=== PATIENT | female | born 1935 | race Caucasian/White ===

== ENCOUNTER 2017-01-29 20:40 | Emergency (ER) | payer MEDICARE ==
[~2017-01-29] VITALS: Ht 167.6 cm; Wt 108.2 kg
[~2017-01-29 20:40] MED LIST: ASPI-973 PO; CHOL10008 PO; GLUC1CAP13 PO; IBUP200C11 PO; LEVO150T5 PO; LISI1TAB7 PO; MULT1CAP33 PO; OMEP40CA36 PO; POTA10CA42 PO
[2017-01-29 20:56] VITALS: BP 158/73; PULSE 71; RESP 18; O2SAT 99
--- NOTE | 2017-01-29 21:44 | ED.REPORT ---
HPI-Extremity Problem Upper Date of Service Jan 29, 2017 ED Provider: Martinez Salgado MD An 81 year old female with a history of hypertension and arthritis presents to the ED complaining of left arm and shoulder pain. The pt tripped over a step while watering plants this evening, landing on her left shoulder. She experienced immediate, severe left shoulder pain. She denies hitting her head, loss of consciousness, headache or neck pain. The pt is not on blood thinners. Nursing Notes Stated Complaint: GLF LEFT ARM PAIN Chief Complaint: Extremity Trauma Nursing Notes Reviewed: Yes Allergies: Coded Allergies: Sulfa (Sulfonamide Antibiotics) (Verified Allergy, Intermediate, SORE MOUTH, 05/24/16) Scheduled Aspirin (Aspirin) 81 Mg Tablet 81 MG PO DAILY Ibuprofen (Advil) 200 Mg Capsule 200 MG PO DAILY Levothyroxine (Levothyroxine) 150 Mcg Tablet 150 MCG PO DAILY Lisinopril / HCTZ 10-12.5 mg (Lisinopril / HCTZ 10-12.5 mg) 1 Each Tablet 1 EACH PO DAILY Multivitamin (Multivitamins) 1 Each Capsule 1 EACH PO DAILY Omeprazole (Omeprazole) 40 Mg Capsule.dr 40 MG PO BID Potassium Chloride (Potassium Chloride) 10 Meq Capsule.er 10 MEQ PO DAILY TAKE WITH FOOD Scheduled PRN Oxycodone HCl/Acetaminophen 5-325 (Endocet 5-325) 1 Each Tablet 1-2 TABLET PO Q4H PRN PRN For Pain Miscellaneous Medications Cholecalciferol (Vitamin D3) (Vitamin D3) 1,000 Unit Tab.chew 1,000 UNIT PO Gluc HCl/Csa/Oleksandr Hy/Hyalur AC (Glucosamine Chondroitin Cap) 1 Each Capsule 2 EACH PO General Time Seen by MD: 21:43 Chief Complaint Shoulder injury left Hx Obtained From: Patient Arrived By: Walk-in Onset Occurred: 1 - 4 hours ago Symptom Duration: Since onset Recent Healthcare: No recent hospitalization, Recent doctor visit Similar Sx Previous: No Past Medical History Past Medical History hypertension hiatal hernia arthritis cancer Past Surgical History bilateral TKA Reports: Cholecystectomy Reports: Tubal ligation Smoking History Never Smoker Social History Other Social History: Good social support, Ambulatory Status Independent Review of Systems Constitutional: Denies: Fever Musculoskeletal: Reports: Joint pain (left shoulder), Denies: Neck pain Neurologic: Denies: Change LOC, Headache Complete sys rev & neg: except as marked. Respiratory: Denies: Non-productive cough, Shortness of breath Cardiovascular: Denies: Chest pain GI: Denies: Abdominal pain, Vomiting Physical Exam Initial Vital Signs Vital Signs (First) Date Time Temp Pulse Resp B/P Pulse Ox O2 Delivery O2 Flow Rate FiO2 01/29/17 20:56 36.3 71 18 158/73 99 Room Air Initial VS: Reviewed General/Constitutional: Awake, Alert Neck: Atraumatic, Supple, Full range of motion Respiratory / Chest: Atraumatic, Breath sounds NL, Breath sounds = bilat, No respiratory distress Cardiovascular: Heart rate NL, Regular rhythm, Heart sounds NL Upper Extremity / MS: No deformity, Neurologic intact sore over the left proximal humerus pulses intact motor function of the medial, radial and ulnar nerve intact Skin: Color NL, No rash, Warm, Dry Neurologic: Oriented X3, Speech NL, No motor deficits, No sensory deficits Head / Eyes: Atraumatic, Normocephalic, PERRL, EOMI ENT: Atraumatic, Airway patent, Mucous membranes moist Abdomen: Atraumatic, Soft, Non-tender Back: Atraumatic, Full range of motion Lower Extremity / Pelvis / MS: Atraumatic, Full range of motion Psychiatric: Affect NL, Mood NL Interpretation & Diagnostics X-Ray Interpretation Xray Interpretation: IMPRESSION: Fracture of the left humeral surgical neck with slight anterior angulation Dictated by: Zac Asencio M.D. on 01/29/2017 at 21:54 Approved by: Zac Asencio M.D. on 01/29/2017 at 21:55 X-Ray Ordered: Shoulder left Interpretation / Wet Read by: Interpret - Radiologist Xray Interpretation: IMPRESSION: Acute fracture left humeral surgical neck. A nondisplaced fracture of the greater tuberosity region may be present as well. Dictated by: Zac Asencio M.D. on 01/29/2017 at 21:55 Approved by: Zac Asencio M.D. on 01/29/2017 at 21:56 X-Ray Ordered: Humerus left Interpretation / Wet Read by: Interpret - Radiologist Procedures Splint Application - Fx Mgt Time: 22:15 Procedure Performed by: ED physician Precise Anatomic Location: left shoulder/arm Type of Immobilization: Sling Definitive Fracture Care: Pain control, Splint Post-Procedure / Complications: Cap refill normal, Post splint vascular nl, Post splint neuro nl, Condition improved, Tolerated procedure well, Patient stable Re-Eval/Medical Decision Re-Evaluation/Progress : Time of Eval: 22:09 Patient Status: Condition improved Re-Evaluation/Progress Note: Pt rechecked, who is resting. The diagnosis and plan for discharge are discussed. The pt understands and agrees with the plan. All questions are addressed at this time. Counseled Regarding: Diagnosis, Lab results, Need for follow-up, When/why to return to ED Discharge & Departure Impression: Primary Impression: Humerus surgical neck fracture Encounter type: initial encounter Fracture type: closed Fracture morphology : 2-part Fracture alignment: nondisplaced Laterality: left Qualified Code : S42.225A - 2-part nondisplaced fracture of surgical neck of left humerus, initial encounter for closed fracture Disposition: Home Discharge Condition All VS Reviewed: Yes Condition: Stable Additional Instructions: Emergency Department evaluation included interview examination and x-rays. There is a fracture of the right arm at the shoulder (humerus fracture). Initial treatment of this is with a sling. May use Percocet 1-2 every 4 hours as needed for pain. Call tomorrow to make an appointment to see an orthopedist. Keep arm in the sling. Return emergency Department for weakness or numbness in arm or severe pain and shoulder. Referrals: Ramonita Hernandez MD (PCP) Kyler Brar MD Attestation Portions of this note were transcribed by Gayatri Dickinson. I, Dr. Salgado personally performed the history, physical exam and medical decision-making; I reviewed and confirmed the accuracy of the information in the transcribed note. Signed by: Brianna Finn, 01/29/2017 and 2233. copies to: Ramonita Hernandez MD, Donald L MD Jan 29, 2017 21:44 GAYATRI DICKINSON Jan 29, 2017 21:45
[2017-01-29] MEDS ORDERED: oxyCODONE-Acetamin 5-325 mg Tablet PO ONE (21:45)
--- NOTE | 2017-01-29 21:57 | DRSVH ---
PROCEDURE: X-RAY LEFT SHOULDER, MINIMUM TWO VIEWS ([id number]) INDICATIONS: fall TECHNIQUE: 2 views of the shoulder were acquired. COMPARISON: None. FINDINGS: Bones: Bones appear osteoporotic. There is an acute fracture of the surgical neck. There is very sli ght anterior angulation at the fracture site and displacement of the head slightly posteriorly. The h ead remains in the glenoid fossa. Soft tissues: No suspicious soft tissue calcifications. IMPRESSION: Fracture of the left humeral surgical neck with slight anterior angulation Dictated by: Zac Asencio M.D. on 01/29/2017 at 21:54 Approved by: Zac Asencio M.D. on 01/29/2017 at 21:55
--- NOTE | 2017-01-29 21:58 | DRSVH ---
PROCEDURE: X-RAY LEFT HUMERUS, MINIMUM TWO VIEWS ([id number]) INDICATIONS: fall TECHNIQUE: 2 views of the humerus were acquired. COMPARISON: None. FINDINGS: Bones: Surgical neck fracture of the left humerus. Head is displaced minimally posteriorly and is karen y slight anterior angulation at the fracture site. No fracture of the distal humerus is seen. No susp icious bony lesions. Soft tissues: No suspicious soft tissue calcifications. IMPRESSION: Acute fracture left humeral surgical neck. A nondisplaced fracture of the greater tuberos ity region may be present as well. Dictated by: Zac Asencio M.D. on 01/29/2017 at 21:55 Approved by: Zac Asencio M.D. on 01/29/2017 at 21:56
[2017-01-29] MEDS ORDERED: _oxyCODONE/APAP 5-325 mg Tablet PO PRN (22:15)
[2017-01-29] MEDS ORDERED: OXYC-407 PO (22:32)
[2017-01-29 22:40] VITALS: BP 142/71; PULSE 68; RESP 16; O2SAT 99
== END 2017-01-29 22:41 ==
LOC: EDBD 20:40 → SED 20:40 → EDUNIT# 20:40 → SED 22:41
DX: S42.225A 2-part nondisplaced fracture of surgical neck of left humerus, initial encounter for closed fracture (principal); W18.39XA Other fall on same level, initial encounter; Y93.89 Activity, other specified; Y92.019 Unspecified place in single-family (private) house as the place of occurrence of the external cause; Y99.8 Other external cause status; I10 Essential (primary) hypertension; Z79.82 Long term (current) use of aspirin; Z88.2 Allergy status to sulfonamides